=== PATIENT | female | born 1990 | race Caucasian/White ===

== ENCOUNTER → 2018-03-11 07:37 | Outpatient (CLI) | payer OTHER, SELFPAY ==
[2018-03-17 12:52] LABS: HPV Reflexed? NOT INDICATED
== END ==
PROVIDERS: Family Provider Family Medicine; PCP Family Medicine; Visit Provider Obstetrics & Gynecology
DX: Z12.4 Encounter for screening for malignant neoplasm of cervix (principal)
CPT/HCPCS: 88175; G0145

== ENCOUNTER → 2019-06-28 12:38 | Outpatient (CLI) | payer OTHER, SELFPAY ==
[2019-06-28 12:01] VITALS: BMI 33.3
[2019-06-28 13:39] LABS: T4 Free Direct 1.07 ng/dL (0.76-1.46); Thyroid Stim Hormone (TSH) 1.29 uIU/mL (0.358-3.74)
== END ==
PROVIDERS: Family Provider Family Medicine; PCP Family Medicine; Referring Provider Obstetrics & Gynecology; Visit Provider Obstetrics & Gynecology
DX: Z13.29 Encounter for screening for other suspected endocrine disorder (principal)
CPT/HCPCS: 36415; 84439; 84443

== ENCOUNTER → 2019-07-03 14:46 | Outpatient (CLI) | payer OTHER, SELFPAY ==
[2019-06-28 12:01] VITALS: BMI 33.3
--- NOTE | 2019-07-03 14:49 | US_ITS ---
STUDY: THYROID ULTRASOUND REASON FOR EXAM: Female, 29 years old. Thyromegaly TECHNIQUE: Ultrasound evaluation of the thyroid was performed with real-time and static gonzales-scale imaging. COMPARISON: None. FINDINGS: RIGHT LOBE: The right lobe of the thyroid gland measures 4 x 1.1 x 0.9 cm. There is a homogeneous echotexture. There are no demonstrated solid, cystic or complex lesions. LEFT LOBE: The left lobe of the thyroid gland measures 4.5 x 1.6 x 1.1 cm. There is a homogeneous echotexture. There are no demonstrated solid, cystic or complex lesions. ISTHMUS: The isthmus measures 3 mm . The regional lymph nodes are normal. US/Thyroid IMPRESSION: Normal ultrasound examination of the thyroid. Electronically Signed: James Tan, at 21:34 EDT Tel , Service support ,
== END ==
PROVIDERS: Family Provider Family Medicine; PCP Family Medicine; Referring Provider Obstetrics & Gynecology; Visit Provider Obstetrics & Gynecology
DX: E01.0 Iodine-deficiency related diffuse (endemic) goiter (principal)
CPT/HCPCS: 76536

== ENCOUNTER → 2020-08-26 | Outpatient (CLI) | payer OTHER, SELFPAY ==
[2020-08-26 15:17] VITALS: BMI 33.3
== END | disposition home or self-care (01) ==
LOC: LABSPEC 16:52
PROVIDERS: Referring Provider Obstetrics & Gynecology; Visit Provider Obstetrics & Gynecology
DX: Z12.4 Encounter for screening for malignant neoplasm of cervix (principal)
CPT/HCPCS: 87624; 88175; G0145

== ENCOUNTER → 2021-09-04 | Outpatient (CLI) | payer OTHER, SELFPAY ==
[2021-09-10 16:05] LABS: HPV APTIMA, High Risk Negative (Negative)
== END | disposition home or self-care (01) ==
PROVIDERS: Visit Provider Obstetrics & Gynecology
DX: Z01.419 Encounter for gynecological examination (general) (routine) without abnormal findings (principal)
CPT/HCPCS: 87624; 88175; G0145

== ENCOUNTER → 2025-11-13 | Outpatient (CLI) | payer OTHER, SELFPAY ==
--- NOTE | 2025-11-13 08:46 | US_ITS ---
PROCEDURE: PELVIC W/ TRANSVAGINAL 11/13/2025 REASON FOR EXAM: CHECK IUD PLACEMENT TECHNIQUE: Procedure Code: [id number] Modality: US Procedure: PELVIC W/ TRANSVAGINAL COMPARISON: None. FINDINGS: Measurements: Uterus: 9.9 x 6.7 x 5.7 cm. Endometrial Thickness: 3 mm. Right Ovary: 3.8 x 2.8 x 2.2 cm. Left Ovary: 3.7 x 3.2 x 1.7 cm. TRANSABDOMINAL: Uterus: At least 2 fibroids are noted, measuring 1.5 x 1.3 x 0.9 cm and 1.9 x 2.3 x 1.6 cm respectively. Endometrium: Hyperechoic. Right ovary: Normal size and echotexture. Left ovary: Normal size and echotexture. No large pelvic mass identified. Transvaginal sonography was performed as transabdominal imaging did not explain the patient's presenting symptoms. TRANSVAGINAL: Uterus: Anteverted. Fibroid uterus as above. Endometrium: Hyperechoic. IUD is noted, in appropriate position. Right ovary: Normal size and echotexture. Left ovary: Normal size and echotexture. Other adnexal findings: None. Cul-de-sac: No free intraperitoneal fluid identified. A possible polyp is noted within the endocervical canal measuring 0.8 x 0.5 x 0.8 cm. DOPPLER: Color Doppler: Normal color flow doppler signal at both ovaries. Spectral Doppler: Normal arterial inflow and venous outflow signal at both ovaries. US/Pelvic w/ Transvaginal IMPRESSION: IUD in appropriate position. Fibroid uterus. A possible polyp is noted in the endocervical canal. Recommend direct visualiz ation. Gynecology consultation is recommended. No ovarian torsion. Reading Location: [place]
--- OUTSIDE RECORDS SUMMARY | 2025-11-13 09:07 | XMS RPT_ITS | CCD ---
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, OLENA Primary Care Physician ([phone]) VANDANA GALDAMEZ, DR WILBER Moreno Attending Unav ailable MAST NECKTIES PAINTER-ESME, OLENA Primary Care Unavailabl e Wilber De La Garza Attending [facility] Care Physician, No Primary Referring Unava ilable Care Physician, No Primary Primary Care Unava ilable Allergies Allergy Classification Reported Allergen(s) Allergy Type Date of Onset Reaction(s) Facility (1 source) Codeine; Translations: [codeine] Drug Allergy [facility] (1 source) Sulfonamides (Antibiotic); Translations: [sulfa drugs] Drug allergy [facility] (1 source) Codeine Drug Allergy 09-27-2024 [facility] Repository (1 source) Sulfonamides (Antibiotic) Drug allergy (disorder) 09-27-2024 [facility] Repository Medications Current Medications Medication Drug Class(es) Dates Sig (Normalized) Sig (Original) clindamycin 0.01 mg/mg topical gel (1 source) Lincosamide Antibacterial Start: 04-16-2023 clindamycin 1% topical gel Apply 1 oneyda, Topical, BID, # 30 gram(s), 0 Refill(s), Pharmacy: [facility][id number], Gel, 163, cm, 04/16/23 13:02:00 EDT, Height, 89 Start Date: 04/16/23 Status: Ordered Loletta IUD (1 source) Start: 04-16-2023 Loletta IUD Loletta IUD, 0 Refill(s), 89 Start Date: 04/16/23 Status: Ordered Problems Problem Classification Problem Date Documented Da te Episodic/Chronic Disorders of lipid metabolism (1 source) Hyperlipidemia; Translations: [Hyperlipidemia, unspecified] Chronic Other skin disorders (1 source) Hidradenitis suppurativa 04-16-2023 Episodic Results Test Name Value Interpretation Reference Range Facility Automatic I Threading Machine Feeder Office Visit Reporton 09-27-2024 Automatic I Threading Machine Feeder Office Visit Report [facility] [address], [address] [place] [address] OFFICE VISIT Date of Service: 09/27/24 MR#: [id number] Acct: [id number] Name: LORI SELLERS Rep #: [id number] : 1990 Provider: Dr. 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) Dictaphone Mechanic Required: No Is patient in pain?: No Feel stressed/tense/nerv ous/anxious/difficu lty sleeping: not at all Allergies codeine Allergy (Mild, Verified 09/27/24 15:55) vomiting Sulfa (Sulfonamide Antibiotics) Allergy (Mild, Verified 09/27/24 15:55) rash Medications ???Medication ???Instructions ???Recorded ???Confirmed ???Type levonorgestrel 20.4 mcg/24 hr (up 1 device intrauterine ONCE 01/16/22 09/27/24 History to 8 yrs) 52 mg intrauterine device (Liletta) cholecalciferol (vitamin D3) 25 25 mcg PO DAILY 09/10/22 09/27/24 History mcg (1,000 unit) capsule lactobacillus combination no.9 4 PO 09/10/22 09/27/24 History billion cell capsule (Adult 50 Plus Probiotic) spironolactone 25 mg tablet 25 mg PO QDAY 09/27/24 09/27/24 History Is last menstrual period known: Yes Last Menstrual Period: 09/13/24 Post menopausal: No Patient : No : No PFSH Medical History Abnormal Pap smear of cervix Asthma H/O keloid of skin Surgical History S/P right knee surgery Family History Grandmother No problems noted. 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 [employer] Smoking Status: Never smoker alcohol intake: current details: occasionally substance use type: does not use caffeine: Yes what type of physical activity do you participate in: walking and weight training frequency: 3-4 times per week seatbelt use: always do you feel safe at home: Yes additional social history: Single History 0 Elective abortions Hx Para Spontaneous abortions Hx # Term Pregnancies Ectopic pregnancies Hx # Pregnancies Multiple births # of living children HPI Encounter for routine gynecological examination Details: LORI SELLERS is a 34 year old who presents for annual exam. lost her dog Yael in the past few weeks, has been difficult but coping appropriately. not interested in fertility at this time. Last PAP: 09/04/2021 - normal History of abnormal PAP: Last mammogram: History of abnormal mammogram: Colon cancer screening: Other preventative health care screenings: Dr. Montesinos is PCP - patient does not see routinely Female Reproductive History Last Menstrual Period: 09/13/24 Associated symptoms: light spotting Questions: metorrhagia: No, sexually active: Yes, dyspareunia: No and PCB: No Menopausal Symptoms: No hot flashes, No night sweats, No weight change, No mood changes, No difficulty concentrating, No sleep problems and No change in libido ROS Const Constitutional: Reports as per HPI; Denies fatigue, increased appetite, poor appetite, night sweats, weight gain or weight loss Cardio Card: Denies chest pain Resp Resp: Denies cough or dyspnea GI GI: Reports as per HPI; Denies abdominal pain, bloating, constipation, nausea or vomiting : Reports as per HPI and other; Denies difficulty voiding, dysuria, hematuria, hot flashes, nipple discharge, pelvic pain, prolapse symptoms, urinary frequency, urinary incontinence, urinary urgency, vaginal discharge, vaginal dryness, vaginal odor or vaginal pruritus Skin Skin/Breast: Denies changing lesions, breast mass, breast pain, breast skin changes or nipple discharge Psych Psych: Denies anxiety, change in libido, depression or difficulty concentrating Exam Const General: cooperative, healthy appearing, comfortable, no acute distress, well developed and well groomed [facility] Head: normal to inspection and normocephalic Ears: hearing grossly normal bilaterally and external ears normal Nose: external nose normal Face and sinus: normal facial exam Neck Neck: normal visual inspection, full ROM and no lymphadenopathy Thyroid: thyroid normal Chest Chest palpation inspection: normal inspection of the chest Breast inspection: normal inspection of the breasts and normal inspection of the axillae Breast palpation: normal palpation of the breasts, normal palpation of the axi (more content not included)... Normal [facility] LABORATORYOrdered By: Danna Aponte on 05-19-2023 Cholesterol [Mass/Vol] 214 mg/dL Invalid Interpretation Code 0 - 200 mg/dL AO ADM SS Cholesterol in HDL [Mass/Vol] 61 mg/dL Invalid Interpretation Code 40 - 60 mg/dL AO ADM SS Cholesterol in LDL [Mass/Vol] 133 mg/dL Invalid Interpretation Code 0 - 130 mg/dL AO ADM SS Triglyceride [Mass/Vol] 99 mg/dL Invalid Interpretation Code 0 - 150 mg/dL AO ADM SS LIPIDon 05-19-2023 Cholesterol [Mass/Vol] 214 mg/dL High 0-200 [facility] ([place]) Comment on above: Result Comment: Chol esterol Reference Interval: Less than 200 Desirable 200-239 Borderline high risk 240 and above High risk Performed By: #### L IPID #### [id number] [place], [place] [address] Cholesterol in HDL [Mass/Vol] 61 mg/dL High 40-60 [facility] ([place]) Comment on above: Performed By: #### L IPID #### [facility] [address] [place], [place] [address] Cholesterol in LDL [Mass/Vol] 133 mg/dL High 0-130 [facility] ([place] Comment on above: Performed By: #### L IPID #### [facility] [address] [place], [place] [address] Triglyceride [Mass/Vol] 99 mg/dL Normal 0-150 [facility] ([place]) Comment on above: Result Comment: Trig lyceride Reference Interval: Less than 150 Normal 150-199 Borderline high risk 200-499 High risk 500 or higher Very high risk Performed By: #### L IPID #### [facility] [address] [place], [place] [address] Encounters Encounter Date Encounter Type Care Provider Facility Start: 09-27-2024 Encounter for gynecological examination (general) (routine) without abnormal findings Wilber De La Garza [facility] Start: 09-27-2024 End: 09-27-2024 ambulatory Wilber De La Garza Facility:[facility] Start: 05-19-2023 End: 05-20-[address] WILBER DE LA GARZA MD Facility:[facility] Start: 05-19-2023 End: 05-19-[address] WILBER DE LA GARZA MD [facility] Immunizations Immunization Date Immunization Notes Care Provider Fa cili 02-14-2021 COVID-19, mRNA, LNP- S, PF, 100 mcg or 50 mcg dose; Translations: [Moderna COVID-19 Vaccine] DR WILBER DE LA GARZA MD [facility] 01-17-2021 COVID-19, mRNA, LNP- S, PF, 100 mcg or 50 mcg dose; Translations: [Moderna COVID-19 Vaccine] DR WILBER DE LA GARZA MD [facility] 06-24-2019 tetanus toxoid, reduced diphtheria toxoid, and acellular pertussis vaccine, adsorbed DR WILBER DE LA GARZA MD [facility] Payers Date Payer Category Payer Self-pay 2023 Unknown [id number] 1990 Unknown [id number] Unknown [id number] Social History Date Type Detail Facility Start: 06-28-2019 Tobacco smoking status Never s moked tobacco (finding) [facility] Comment on above: no smoke exposure Sex Assigned At Female [facility] Evaluation + Plan note Note Date & Type Note Facility Evaluation + Plan note No data available for this section [facility] Discharge instructions Note Date & Type Note Facility Hospital Discharge instructions No data available for this section [facility] Progress note Note Date & Type Note Facility Progress note No data available for this section [facility] Summary Purpose Family History No Family History Records FoundNo Family History Records Found Advance Directives No Advanced Directives Records FoundNo Advanced Directives Records Found Additional Source Comments Patient Care team informatio n (unrecognized section and content) Care Team Personnel Name: OLENA MONTESINOS Position: P4 Advanced Veneer Taper Member Role: Primary Care Physician Address: Address: [address] [place] [address] Care Team Related Persons Name: NATALIE SELLERS INFORMATION SOURCE (unrecogn ized section and content) DATE CREATED AUTHOR 05/20/2023 [facility] ([place]) DATE CREATED AUTHOR AUTHOR'S ORGANIZ ATION 09/29/[address] [facility] FOR RECORDS PERTAINING TO PATIENTS WHO ARE OR HAVE BEEN ENROLLED IN A CHEMICAL DEPENDENCY/SUBSTANCEABUSE PROGRAM, SOME INFORMATION MAY BE OMITTED. This clinical summary was aggregated from multiple sources. Caution should be exercised in using it in the provision of clinical care. This summary normalizes information from multiple sources, and as a consequence, information in this document may materially change the coding, format and clinical context of patient data. In addition, data may be omitted in some cases. CLINICAL DECISIONS SHOULD BE BASED ON THE PRIMARY CLINICAL RECORDS. [facility]. provides no warranty or guarantee of the accuracy or completeness of information in this document.
== END | disposition home or self-care (01) ==
PROVIDERS: Referring Provider Obstetrics & Gynecology; Visit Provider Obstetrics & Gynecology
DX: Z30.431 Encounter for routine checking of intrauterine contraceptive device (principal); D25.9 Leiomyoma of uterus, unspecified; N85.4 Malposition of uterus
CPT/HCPCS: 76830; 76856